=== PATIENT | female | born 1955 | race Caucasian/White ===

== ENCOUNTER 2023-11-10 09:12 | Inpatient (IN) | payer MEDICARE, OTHER, SELFPAY ==
[2023-11-08 17:04] VITALS: BP 123/84
[2023-11-08 17:32] VITALS: BMI 23.5
[2023-11-08 17:41] VITALS: BP 127/83
[2023-11-08 17:48] LABS: % Basophils 0.9 % (0-2); % Eosinophils 2.7 % (0-6); % Immature Granulocytes 0.2 % (0-0.5); % Lymphocytes 17.1 % (20.5-51.1); % Monocytes 7.1 % (1.7-9.3); Absolute Basophils 0.1 10^3/uL (0-0.2); Absolute Eosinophils 0.2 10^3/uL (0-0.7); Absolute Lymphocytes 1.5 10^3/uL (1.2-3.4); Absolute Monocytes 0.6 10^3/uL (0.1-0.6); Absolute Neutrophils 6.1 10^3/uL (1.4-6.5); Hematocrit 37.7 % (37.0-47.0); Hemoglobin 13.1 g/dL (12.0-16.0); Mean Corp Hgb Conc. 34.7 g/dL (33.0-37.0); Mean Corpuscular Hgb 30.3 pg (27.0-31.0); Mean Corpuscular Volume 87.3 fL (81.0-99.0); Nucleated Red Blood Cells % 0 %; Platelet Count 251 10^3/uL (130-400); Red Blood Cell Count 4.32 10^6/uL (4.20-5.40); Red Cell Dist. Width 12.2 % (11.5-14.5); White Blood Cell Count 8.5 10^3/uL (4.8-10.8)
[2023-11-08 18:00] VITALS: BP 124/65
[2023-11-08 18:13] LABS: ALT (SGPT) 19 U/L (0-35); AST (SGOT) 27 U/L (14-36); Albumin 4.1 g/dl (3.5-5.0); Alkaline Phosphatase 80 U/L (38-126); Blood Urea Nitrogen 16 mg/dl (7-17); Calcium 9.5 mg/dl (8.4-10.2); Carbon Dioxide 28 mmol/L (22-30); Chloride 104 mmol/L (98-107); Estimated Creatinine Clearance 73 ml/min; Glucose 101 mg/dl (70-99); Lipase 80 U/L (23-300); Potassium 3.9 mmol/L (3.5-5.1); Sodium 137 mmol/L (135-145); Total Bilirubin 0.4 mg/dl (0.2-1.3); Total Protein 6.5 g/dl (6.3-8.2); eGFR > 60.00
[2023-11-08] MEDS: DILAUDID 0.5 MG IV (18:15)
[2023-11-08] MEDS: NSS 1000 IV ×2 (18:15→22:35)
[2023-11-08 18:38] LABS: Urine Albumin Negative (Neg - Trace); Urine Bilirubin Negative (Negative); Urine Character Clear (Clear); Urine Color Yellow; Urine Glucose Negative (Negative); Urine Ketone Negative (Negative); Urine Leukocyte 1+ (Negative); Urine Nitrite Negative (Negative); Urine Occult Blood Negative (Negative); Urine Urobilinogen Negative (Neg - 1+); Urine pH 6.5 (5.0-9.0)
[2023-11-08 18:48] LABS: Urine Red Blood Cell 0-2 /HPF (0-2); Urine White Cell 0-2 /HPF (0-5)
[2023-11-08 19:00] VITALS: BP 123/70
--- NOTE | 2023-11-08 19:16 | ED.GENMED ---
History of Present Illness
<Jigna Lu PA-C - Last Filed: 11/11/23 09:11>
General
Chief Complaint: Abdominal Symptoms
Source: patient
Exam Limitations: none
Time Seen by Provider: 11/08/23 17:28
Nursing documentation reviewed up to this point in time: agreed with
History of Present Illness
History of Present Illness:
68 y/o F
h/o divertic
says she hd covid end of september
took paxlovid and got diarrhea for a ew days
then took 1 imoidium and tried drinking a smoothie about 5 days ago and got constipated and lower abd pain simlar to divertic
no fever/chills
tried clear liquids for a few days and then went to urgent care 2 days ago and got rx for icpro
bid cipro x 3 doses
went to pcp today and was sent here for eval for ct scan
Past History
<Jigna Lu PA-C - Last Filed: 11/11/23 09:11>
Past History
ED Past Medical History: Other (divertic)
Review of Systems
<KATHERINE Cutler Last Filed: 11/11/23 09:11>
Review of Systems
Allergies reviewed?: Yes
All Other Systems: Not applicable
Phy Exam
<Jigna Lu PA-C - Last Filed: 11/11/23 09:11>
Physical Exam
Physical Exam:
GENERAL: Alert , in no apparent distress
EYE: pupils equal and reactive
NECK: Supple
ENT: o/p clr, mmm.
CARDIAC: Regular rate and rhythm .
LUNGS: Clear breath sounds bilaterally, no acute respiratory distress, no wheezes/rales/rhonchi
ABDOMEN: Soft, moder left lower quad tendenress, no r/g, no cvat, normal bowel sounds
NEUROLOGICAL: Alert and oriented, no focal neuro deficits
SKIN: Warm and dry, skin intact.
MUSCULOSKELETAL: No edema, well perfused.
PSYCH: Normal and appropriate interaction.
Course
<Jigna Lu PA-C - Last Filed: 11/11/23 09:11>
Orders/Labs/Results
Orders:
Orders
11/08/23 17:41
IV Insert/Care/Rem.- Treatment PRN
11/08/23 17:42
Complete Blood Count/With Diff Urgent
Comprehensive Metabolic Panel Urgent
Lipase Urgent
11/08/23 18:09
CT Abd/Pel (IV only)-DH only Urgent
Comment:
Reason For Exam: lower abd pain x 6 days, divertic history
0.9% Sodium Chloride 1000 ml [Nss] 1,000 ml IV BOLUS
HYDROmorphone [Dilaudid] 0.5 mg IV NOW STA
11/08/23 18:31
Urinalysis Reflex To Culture Urgent
Date Specimen was Collected: 11/08/23
Time Specimen was Collected: 18:17
Urine Microscopic Reflex Cult Urgent
Urine Culture Urgent
TONA Source: U
Specimen Description:
Date Specimen was Collected: 11/08/23
Time Specimen was Collected: 18:17
11/08/23 20:19
Ondansetron Injectable [Zofran] 4 mg .ROUTE .STK-MED ONE
Ondansetron Injectable [Zofran] 4 mg IV NOW STA
11/08/23 21:18
Piperacillin/Tazo 3.375 Gram [Zosyn] 3.375 gram in 50 ml IV NOW
11/08/23 21:38
Admit/Transfer Patient As Directed
Co-Sign Provider:
Level of Care: Observation services
Assign to:: Medical/Surgical
Physician / Group: [email or web address]
Diagnosis: Acute uncomplicated diverticultis, constipation, nausea
Reason for Hospitalization: Acute uncomplicated diverticultis, constipation
Expected length of stay greater than two midnights?: Yes
ELOS- Estimated Length of Stay in days: 3
I certify the patient meets the requirements for IP care: Yes
11/08/23 21:40
Code Status As Directed
Resuscitation Status: Full Code
11/08/23 22:00
Flush (0.9% Sodium Chloride) [Flush (Nss)] See Dose Instructions IV PER PROTOCOL
11/08/23 22:15
0.9% Sodium Chloride 1000 ml [Nss] 1,000 ml IV 80 mls/hr
Bisacodyl [Dulcolax] 10 mg RECTAL [id number] PRN
Docusate W/Senna [Senokot-S] 1 tablet PO BIDPRN PRN
HYDROmorphone [Dilaudid] 0.5 mg IV Q4HPRN PRN
Ondansetron Injectable [Zofran] 4 mg IV Q6HPRN PRN
Polyethylene Glycol Powder [Miralax] 17 grams PO DAILYPRN PRN
11/08/23 22:15
Colon Surgery Consult [ColoRectal Surgery Consult] Routine
Consulting Provider: Jack Argueta
Was physician already notified: Yes
Reason for consult: acute diverticultis , constipation
Activity As Directed
Activity Level: With Assistance
Intake/ Output As Directed
Frequency: Per unit guidelines
Vital Signs As Directed
Frequency: Per unit guidelines
DX Deep Vein Thrombosis Video Routine
11/09/23 04:00
Piperacillin/Tazo 3.375 Gram [Zosyn] 3.375 gram in 50 ml IV Q6H
11/09/23 Breakfast
Clear Liquid
At Your Request: Full Participation
11/09/23 06:04
Basic Metabolic Panel IN AM
Complete Blood Count/No Diff IN AM
11/09/23 08:00
Docusate Sodium [Colace] 100 mg PO BID
Heparin 5,000 units SC Q12
Polyethylene Glycol Powder [Miralax] 17 grams PO DAILY
11/09/23 09:19
Acetaminophen [Tylenol] 650 mg PO Q6HPRN PRN
11/09/23 15:19
Enema As Directed
Type: Tap water
Amount: 300cc
Frequency: daily prn
Comment: for constipation
11/10/23 07:28
Complete Blood Count/With Diff IN AM
Abnormal Lab Results
11/08/23 11/08/23 11/09/23
17:42 18:31 06:04
RBC 4.04 L 10^6/uL
(4.20-5.40)
Hgb 11.9 L g/dL
(12.0-16.0)
Hct 34.2 L %
(37.0-47.0)
Absolute Lymphs (auto)
Lymphocytes % 17.1 L %
(20.5-51.1)
Glucose 101 H mg/dl
(70-99)
Leukocyte Esterase Rfl 1+ A
(Negative)
11/10/23
07:28
RBC
Hgb
Hct 36.4 L %
(37.0-47.0)
Absolute Lymphs (auto) 0.9 L 10^3/uL
(1.2-3.4)
Lymphocytes % 18.5 L %
(20.5-51.1)
Glucose
Leukocyte Esterase Rfl
11/10/23 07:28
11/09/23 06:04
Vital Signs
Initial and Last Documented VS:
Initial Vital Signs
Temp Pulse Resp BP Pulse Ox
98.2 F 73 18 123/84 95
11/08/23 17:04 11/08/23 17:04 11/08/23 17:04 11/08/23 17:04 11/08/23 17:04
Last Documented Vital Signs
Temp Pulse Resp BP Pulse Ox
98.1 F 57 16 116/68 95
11/10/23 15:00 11/10/23 15:00 11/10/23 15:00 11/10/23 15:00 11/10/23 15:00
<Tony Issa PA-C - Last Filed: 11/08/23 21:22>
Orders/Labs/Results
Orders:
Orders
11/08/23 17:41
IV Insert/Care/Rem.- Treatment PRN
11/08/23 17:42
Complete Blood Count/With Diff Urgent
Comprehensive Metabolic Panel Urgent
Lipase Urgent
11/08/23 18:09
CT Abd/Pel (IV only)-[facility] only Urgent
Comment:
Reason For Exam: lower abd pain x 6 days, divertic history
0.9% Sodium Chloride 1000 ml [Nss] 1,000 ml IV BOLUS
HYDROmorphone [Dilaudid] 0.5 mg IV NOW STA
11/08/23 18:31
Urinalysis Reflex To Culture Urgent
Date Specimen was Collected: 11/08/23
Time Specimen was Collected: 18:17
Urine Microscopic Reflex Cult Urgent
Urine Culture Urgent
TONA Source: U
Specimen Description:
Date Specimen was Collected: 11/08/23
Time Specimen was Collected: 18:17
11/08/23 20:19
Ondansetron Injectable [Zofran] 4 mg .ROUTE .STK-MED ONE
Ondansetron Injectable [Zofran] 4 mg IV NOW STA
11/08/23 21:18
Piperacillin/Tazo 3.375 Gram [Zosyn] 3.375 gram in 50 ml IV NOW
11/08/23 21:38
Admit/Transfer Patient As Directed
Co-Sign Provider:
Level of Care: Observation services
Assign to:: Medical/Surgical
Physician / Group: analy
Diagnosis: Acute uncomplicated diverticultis, constipation, nausea
Reason for Hospitalization: Acute uncomplicated diverticultis, constipation
Expected length of stay greater than two midnights?: Yes
ELOS- Estimated Length of Stay in days: 3
I certify the patient meets the requirements for IP care: Yes
11/08/23 21:40
Code Status As Directed
Resuscitation Status: Full Code
11/08/23 22:00
Flush (0.9% Sodium Chloride) [Flush (Nss)] See Dose Instructions IV PER PROTOCOL
11/08/23 22:15
0.9% Sodium Chloride 1000 ml [Nss] 1,000 ml IV 80 mls/hr
Bisacodyl [Dulcolax] 10 mg RECTAL [id number] PRN
Docusate W/Senna [Senokot-S] 1 tablet PO BIDPRN PRN
HYDROmorphone [Dilaudid] 0.5 mg IV Q4HPRN PRN
Ondansetron Injectable [Zofran] 4 mg IV Q6HPRN PRN
Polyethylene Glycol Powder [Miralax] 17 grams PO DAILYPRN PRN
11/08/23 22:15
Colon Surgery Consult [ColoRectal Surgery Consult] Routine
Consulting Provider: Jack Argueta
Was physician already notified: Yes
Reason for consult: acute diverticultis , constipation
Activity As Directed
Activity Level: With Assistance
Intake/ Output As Directed
Frequency: Per unit guidelines
Vital Signs As Directed
Frequency: Per unit guidelines
DX Deep Vein Thrombosis Video Routine
11/09/23 04:00
Piperacillin/Tazo 3.375 Gram [Zosyn] 3.375 gram in 50 ml IV Q6H
11/09/23 Breakfast
Clear Liquid
At Your Request: Full Participation
11/09/23 06:04
Basic Metabolic Panel IN AM
Complete Blood Count/No Diff IN AM
11/09/23 08:00
Docusate Sodium [Colace] 100 mg PO BID
Heparin 5,000 units SC Q12
Polyethylene Glycol Powder [Miralax] 17 grams PO DAILY
11/09/23 09:19
Acetaminophen [Tylenol] 650 mg PO Q6HPRN PRN
11/09/23 15:19
Enema As Directed
Type: Tap water
Amount: 300cc
Frequency: daily prn
Comment: for constipation
11/10/23 07:28
Complete Blood Count/With Diff IN AM
Abnormal Lab Results
11/08/23 11/08/23 11/09/23
17:42 18:31 06:04
RBC 4.04 L 10^6/uL
(4.20-5.40)
Hgb 11.9 L g/dL
(12.0-16.0)
Hct 34.2 L %
(37.0-47.0)
Absolute Lymphs (auto)
Lymphocytes % 17.1 L %
(20.5-51.1)
Glucose 101 H mg/dl
(70-99)
Leukocyte Esterase Rfl 1+ A
(Negative)
11/10/23
07:28
RBC
Hgb
Hct 36.4 L %
(37.0-47.0)
Absolute Lymphs (auto) 0.9 L 10^3/uL
(1.2-3.4)
Lymphocytes % 18.5 L %
(20.5-51.1)
Glucose
Leukocyte Esterase Rfl
11/10/23 07:28
11/09/23 06:04
Vital Signs
Initial and Last Documented VS:
Initial Vital Signs
Temp Pulse Resp BP Pulse Ox
98.2 F 73 18 123/84 95
11/08/23 17:04 11/08/23 17:04 11/08/23 17:04 11/08/23 17:04 11/08/23 17:04
Last Documented Vital Signs
Temp Pulse Resp BP Pulse Ox
98.1 F 57 16 116/68 95
11/10/23 15:00 11/10/23 15:00 11/10/23 15:00 11/10/23 15:00 11/10/23 15:00
<Jigna Lu PA-C - Last Filed: 11/11/23 09:11>
MDM/Problems Addressed
Differential Diagnosis Includes:
diverticultis, perforation, abscess, uti
MDM/Problems Addressed:
68 y/oF
h/o divertic
had diarrhea while on paxlovid 2 weeks ago and then started becoming constipated with pain
she thihns a smoothie initiated diverticulitis
tried clear liquids but pain worsening
went to urgent care and has had 3 doses cipro, unclear why not flagyl
now having worse pain
mild to mod LLQ tender
no guarding or rebound
no fever
will eval with labs and ct.
<Tony Issa PA-C - Last Filed: 11/08/23 21:22>
*Critical Care Note
Total Time (30-74mins, 75-104mins- exclusive of procedures): Not Applicable
<Tony Issa PA-C - Last Filed: 11/08/23 21:22>
Patient Management
Discussion with other providers: Hospitalist
Escalation/DeEscalation of care consider admission/obs:
Received patient in signout pending CT of the abdomen and pelvis. Patient with mild uncomplicated diverticulitis. No abscess or bowel perforation noted. Incidental findings of right renal mass likely benign and liver cysts were discussed with the
patient. She was provided with a printout of the CT report. She is still noting continued pain and discomfort and ultimately feels that she needs to stay overnight for IV antibiotics and management. Notified hospitalist team who accepts for
continued evaluation and treatment.
ED Attending Note
<Jigna Lu PA-C - Last Filed: 11/11/23 09:11>
-
Portions of this chart may have been created with voice recognition software.� Occasional wrong word or��sound alike� substitutions may have occurred due to the inherent limitations of voice recognition software.
Discharge Plan
Departure
Patient Disposition: Admit
Date of Disposition: 11/08/23
Time of Disposition: 21:21
Presentation/result/management discussed w/ accepting MD/DO: Hospitalist
Discharge Problem:
Diverticulitis
Interventions
Interventions:
*Risk Screen - Suicide Last Done: 11/08/23 17:33
*General Assessment Last Done: 11/08/23 17:33
*Neglect/Abuse Screening Last Done: 11/08/23 17:33
ED- Fall Risk Assessment Last Done: 11/08/23 19:17
*ED COVID-19 Vaccine History Last Done: 11/08/23 17:33
*Nursing Disposition Last Done: 11/08/23 22:37
RB-Zdcvad-Gczyuoxpsq Assessment Last Done: 11/08/23 19:16
[2023-11-08] MEDS: ZOFRAN 4 MG IV (20:20)
[2023-11-08] MEDS: ZOSYN 50 IV (21:25)
--- NOTE | 2023-11-08 21:32 | HPS.HSE ---
Family Physician
-
Family Physician: Priya De León MD
Chief Complaint
-
colicky abdominal pain
History of Present Illness
68F with recent OP Dxs of acute uncomplicated diverticulitis. Currently on D2/ dose 3 Cipro after being evalauted at ER. F/u with PCP today and sent to ER for furthr evalaution for worsening of abdominal pain
- constipated for last 4 days
- Not taking laxatives
- worsening colicky abdominal pain
- worsening nausea
- Received one dose of IV Zofran
- Zosyn was started at ER
- HX 1st episode of uncomplicated diverticulitis 7 yrs ago
Medical History
Past Medical History
Past Medical History: Reports None
Past Surgical History: Reports None
Social History
Tobacco: Non-smoker
Alcohol: None
Drug: None
Family History
Family History: Not pertinent
Allergies / Home Medications
Allergies reflects when Allergies were last updated in [employer].
Home Medications with original date entered in [employer]
Allergy/Medication List:
Allergies
Allergy/AdvReac Type Severity Reaction Status Date / Time
No Known Allergies Allergy Unverified 11/08/23 17:09
Home Medications
ascorbic acid (vitamin C) 500 mg tablet (Vitamin C) 500 mg PO DAILY 11/08/23
calcium carbonate 600 mg PO DAILY 11/08/23
ciprofloxacin HCl 500 mg tablet 500 mg PO BID 11/08/23
therapeutic multivitamin 1 tab PO DAILY 11/08/23
vitamin B complex 1 cap PO DAILY 11/08/23
Review of Systems
-
Constitutional: Reports No Symptoms
EENT: Reports No Symptoms
Respiratory: Reports No Symptoms
Cardiac: Reports No Symptoms
Abdomen/GI: Reports See HPI, Abdominal Pain, Nausea and Constipated; Denies Vomiting
: Reports No Symptoms
Musculoskeletal: Reports No Symptoms
Skin: Reports No Symptoms
Neurological: Reports No Symptoms
Endocrine: Reports No Symptoms
Hematologic/Lymphatic: Reports No Symptoms
Psych: Reports No Symptoms
Physical Exam
Vital Signs
Vital Signs
Temp Pulse Resp BP Pulse Ox
98.2 F 69 12 123/70 93
11/08/23 17:04 11/08/23 19:15 11/08/23 19:15 11/08/23 19:00 11/08/23 19:15
Physical Exam
General: Well Developed, Well Nourished and No Apparent Distress
HEENT: NormoCephalic, Moist mucous membranes and Atraumatic
Respiratory: Clear
Cardiac: S1/S2 and Regular Rhythm; No Murmur or Rub
GI: Soft, Non Tender, Non Distended and Normal Bowel Sounds; No Organomegaly
Rectal: Deferred by Provider
Musculoskeletal: No Clubbing, No Cyanosis and No Edema
Skin: No Rash
Neuro: Nonfocal/grossly intact
Psych: Calm and Intact Judgment/Insight
Laboratory Results
-
11/08/23 17:42
11/08/23 17:42
Laboratory Results
Total Bilirubin 0.4 mg/dl (0.2-1.3) 11/08/23 17:42
AST 27 U/L (14-36) 11/08/23 17:42
ALT 19 U/L (0-35) 11/08/23 17:42
Alkaline Phosphatase 80 U/L (38-126) 11/08/23 17:42
Lipase 80 U/L (23-300) 11/08/23 17:42
Data Reviewed
-
CT Scan: Report Reviewed by me
Lab Data: Labs Reviewed by me
Impression/Plan
-
Reviewed VS: afebrile , unremarkable
Data
WCC 8.5
Unremarkable CMP
NEG UA
No Prior hospitalist or admission:
CT Abd/Pel with IV only
- Mild acute diverticulitis of the mid sigmoid colon.
- No evidence of perforation or abscess formation.
- Moderate fecal material throughout the colon.
- Hepatic cysts cysts. Too small to characterize hypodense hepatic lesions likely benign cysts.
- Benign right renal intramural lipoma. (Too small to catheterize hypodense right renal lesions likely benign cysts)
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
ASSESSMENT & PLAN
Acute uncomplicated diverticulitis : - HX 1st episode of uncomplicated diverticulitis 7 yrs ago
Fecal burden due to constipation for last 4 days: Not on laxatives at home
- No evidence of perforation or abscess formation.
- Moderate fecal material throughout the colon per CT
- Colace fecal softener BID and Miralax PRN. Would avoid stimulant like senna if we can !
- IV Zofran PRN
- IVF
- cont Zosyn and transition back to PO soon
- CRS consult
DVT Px: SCD
Code: Full code
Obs MS
[2023-11-08 22:31] VITALS: BP 127/75
[2023-11-08 22:32] VITALS: BP 127/75
--- NOTE | 2023-11-09 03:42 | PTCARENOTE ---
Report given to Hannah PAYTON
[2023-11-09] MEDS: ZOSYN 50 IV ×4 (04:16→21:16)
[2023-11-09 06:19] LABS: Hematocrit 34.2 % (37.0-47.0); Hemoglobin 11.9 g/dL (12.0-16.0); Mean Corp Hgb Conc. 34.8 g/dL (33.0-37.0); Mean Corpuscular Hgb 29.5 pg (27.0-31.0); Mean Corpuscular Volume 84.7 fL (81.0-99.0); Mean Platelet Volume 8.8 fL (7.4-10.4); Platelet Count 228 10^3/uL (130-400); Red Blood Cell Count 4.04 10^6/uL (4.20-5.40); Red Cell Dist. Width 12.2 % (11.5-14.5); White Blood Cell Count 6.4 10^3/uL (4.8-10.8)
[2023-11-09 06:46] LABS: Blood Urea Nitrogen 10 mg/dl (7-17); Calcium 8.7 mg/dl (8.4-10.2); Carbon Dioxide 27 mmol/L (22-30); Chloride 107 mmol/L (98-107); Estimated Creatinine Clearance 73 ml/min; Glucose 86 mg/dl (70-99); Potassium 3.8 mmol/L (3.5-5.1); Sodium 139 mmol/L (135-145); eGFR > 60.00
[2023-11-09 07:00] VITALS: BP 112/52
[2023-11-09 07:03] VITALS: BP 112/52
[2023-11-09] MEDS: MIRALAX 17 GRAMS PO (09:01)
--- NOTE | 2023-11-09 09:08 | CON.CRS ---
Consultation
-
Date/Time Consultation Requested: 11/08/2023, 22:15
Date/Time Consultation Performed: 11/09/2023, 9:45
Requesting Provider: Arya Deleon MD
Performing Provider: Dillon Guerrero MD
Reason for Consultation: diverticulitis
Medical History
-
Chief Complaint: abdominal pain
History of Present Illness:
68-year-old female presents to [place] emergency department yesterday complaining of abdominal pain. The patient had COVID at the end of September and took Paxlovid and got diarrhea for several days. Because of this she took an Imodium 5 days ago
and was constipated ever since. She developed lower abdominal pain that was similar to her previous diverticulitis attack about 7 years ago. She went to urgent care 2 days ago and was prescribed Cipro. She went to her primary care doctor
yesterday for this issue who sent her to the ER for imaging.
In the ER her vital signs are normal. Her white blood cell count is 6.4. CT of the abdomen and pelvis showed mild acute diverticulitis of the mid sigmoid colon. No evidence of perforation or abscess formation. Moderate fecal material throughout
the colon. She was started on IV Zosyn and on a clear liquid diet. She had a small hard BM this morning. We have been consulted for further surgical evaluation.
Past Medical History
Past Medical History: None
Past Surgical History: None
Social History
Tobacco: Non-Smoker
Alcohol: None
Drug: None
Family History
Family History: Reviewed & Not Pertinent
Allergies / Home Medications
Allergy/AdvReac Type Severity Reaction Status Date / Time
No Known Allergies Allergy Unverified 11/08/23 17:09
�Medication �Instructions �Recorded �Confirmed �Type
ascorbic acid (vitamin C) 500 mg 500 mg PO DAILY 11/08/23 11/08/23 History
tablet (Vitamin C)
calcium carbonate 600 mg PO DAILY 11/08/23 11/08/23 History
ciprofloxacin HCl 500 mg tablet 500 mg PO BID 11/08/23 11/08/23 History
therapeutic multivitamin 1 tab PO DAILY 11/08/23 11/08/23 History
vitamin B complex 1 cap PO DAILY 11/08/23 11/08/23 History
Review of Systems
-
History Source: Patient
Abdomen/GI: Abdominal Pain
A 10 point review of systems was completed, and was negative except as per HPI.
Physical Exam
Vital Signs
Temp 98.1 F 11/09/23 07:00
Pulse 56 11/09/23 07:00
Resp Rate 16 11/09/23 07:00
Blood pressure 112/52 11/09/23 07:00
SaO2 96 11/09/23 07:00
11/08/23 11/09/23 11/10/23
06:59 06:59 06:59
Actual Weight 65.9 kg
Body Mass Index (BMI) 23.5
Lab Results / Allergies
11/09/23 06:04
11/09/23 06:04
WBC 6.4 10^3/uL (4.8-10.8) 11/09/23 06:04
Hgb 11.9 g/dL (12.0-16.0) L 11/09/23 06:04
Hct 34.2 % (37.0-47.0) L 11/09/23 06:04
Plt Count 228 10^3/uL (130-400) 11/09/23 06:04
Abs Immat Gran (auto) 0.0 10^3/uL (0-0.05) 11/08/23 17:42
Neutrophils % 72.0 % (42.2-75.2) 11/08/23 17:42
Allergy/AdvReac Type Severity Reaction Status Date / Time
No Known Allergies Allergy Unverified 11/08/23 17:09
Physical Exam
General: Well Developed, Well Nourished and No Apparent Distress
GI: Soft, Non Tender and Non Distended
Skin: Warm and Dry
Neuro: AO x 3
Data Reviewed
-
CT Scan: Image Personally Visualized and interpreted and Report Reviewed by me
Labs: Labs Reviewed by me, Discussed with Physician and Discussed with Patient
Old Records: Reviewed
Assessment / Plan
-
Assessment: 68-year-old female with no past medical history presents to the emergency department complaining of lower abdominal pain and found to have mild acute diverticulitis of the mid sigmoid colon on CT. Sigmoid diverticulitis vs stercoral
colitis.
Plan: No acute surgical intervention needed at this time. It is difficult to tell on CAT scan if this is truly sigmoid diverticulitis versus stercoral colitis. Either diagnosis requires IV antibiotics. Will d/c miralax and colace/senna. Enema PRN
if constipated. Trend labs/vitals.
[2023-11-09] MEDS: ZOFRAN 4 MG IV (10:04)
[2023-11-09] MEDS: TYLENOL 650 MG PO (10:04)
--- NOTE | 2023-11-09 14:10 | W.PN.HOSP.TC ---
Today's Communication/Plan
-
Monitor vital signs and see plan
Continued antibiotics
Continue clears
Assessment / Plan
Assessment / Plan
General: Well Developed, Well Nourished and No Apparent Distress
HEENT: NormoCephalic, Moist mucous membranes and Atraumatic
Respiratory: Clear
Cardiac: S1/S2 and Regular Rhythm; No Murmur or Rub
GI: Soft, Non Tender, Non Distended and Normal Bowel Sounds
Musculoskeletal: No Edema
Neuro: Nonfocal/grossly intact
Psych: Calm and Intact Judgment/Insight
Acute uncomplicated diverticulitis : - HX 1st episode of uncomplicated diverticulitis 7 yrs ago
Could also have some stercoral colitis
Fecal burden due to constipation for last 4 days: Not on laxatives at home
- No evidence of perforation or abscess formation.
- Moderate fecal material throughout the colon per CT
Now having bowel movement, spoke with colorectal and would stop laxative at this time. If patient is constipated then can do enema
- IV Zofran PRN
- IVF
clears
- cont Zosyn and transition back to PO soon
- CRS consult
Mild anemia; likely 2/2 dilution
monitor
DVT Px: SCD
Code: Full code
Anticipated Discharge: Within 24 hours
Subjective/Interval History
-
Date of Service: November 09, 2023
Objective Data
-
Labs:
Laboratory Results
11/09/23
06:04
WBC 6.4
Hgb 11.9 L
Hct 34.2 L
Plt Count 228
Sodium 139
Potassium 3.8
Chloride 107
Carbon Dioxide 27
BUN 10
Creatinine 0.7
Glucose 86
Calcium 8.7
Vital Signs:
Vital Signs
Temp Pulse Resp BP Pulse Ox
98.1 F 56 16 112/52 96
11/09/23 07:00 11/09/23 07:00 11/09/23 07:00 11/09/23 07:00 11/09/23 07:00
I&O
11/08/23 11/09/23 11/10/23
06:59 06:59 06:59
Intake Total 50 / 50
Balance 50 / 50
[2023-11-09] MEDS: NSS 1000 IV (14:38)
[2023-11-09 14:44] VITALS: BP 112/60
[2023-11-09 15:00] VITALS: BP 112/60
[2023-11-09 23:00] VITALS: BP 104/62
[2023-11-10] MEDS: NSS 1000 IV (00:36)
[2023-11-10] MEDS: TYLENOL 650 MG PO (00:39)
[2023-11-10] MEDS: ZOSYN 50 IV ×2 (04:01→09:08)
[2023-11-10 07:30] VITALS: BP 119/70
[2023-11-10 08:11] LABS: % Basophils 1.2 % (0-2); % Eosinophils 3.4 % (0-6); % Immature Granulocytes 0.4 % (0-0.5); % Lymphocytes 18.5 % (20.5-51.1); % Monocytes 7.2 % (1.7-9.3); % Neutrophils 69.3 % (42.2-75.2); Absolute Basophils 0.1 10^3/uL (0-0.2); Absolute Eosinophils 0.2 10^3/uL (0-0.7); Absolute Lymphocytes 0.9 10^3/uL (1.2-3.4); Absolute Monocytes 0.4 10^3/uL (0.1-0.6); Absolute Neutrophils 3.5 10^3/uL (1.4-6.5); Hematocrit 36.4 % (37.0-47.0); Hemoglobin 12.8 g/dL (12.0-16.0); Mean Corp Hgb Conc. 35.2 g/dL (33.0-37.0); Mean Corpuscular Hgb 30.5 pg (27.0-31.0); Mean Corpuscular Volume 86.7 fL (81.0-99.0); Mean Platelet Volume 9.1 fL (7.4-10.4); Nucleated Red Blood Cells % 0 %; Platelet Count 243 10^3/uL (130-400); Red Cell Dist. Width 12.2 % (11.5-14.5)
--- NOTE | 2023-11-10 09:16 | W.PN.CRS1 ---
Today's Communication / Plan
-
Low residue
Okay for discharge from our perspective, no surgery
Assessment/Plan
-
Assessment: 68-year-old female with no past medical history presents to the emergency department complaining of lower abdominal pain and found to have mild acute diverticulitis of the mid sigmoid colon on CT. Sigmoid diverticulitis vs stercoral
colitis.
Plan:
-No surgery indicated at this time
� Advance diet to low residue
� Labs and vitals normal
� Okay to discharge from our perspective if tolerates low residue diet. Finish course of antibiotics.
� Okay for MiraLAX as needed.
Subjective Data
Subjective Data
Date of Service: November 10, 2023
Patient states that she feels 'wiped out'. She is passing bowel movements. She has no abdominal pain. She was nauseous earlier but this resolved.
Objective Data
-
Vital Signs
Temp Pulse Resp BP Pulse Ox
97.5 F 55 16 119/70 95
11/10/23 07:30 11/10/23 07:30 11/10/23 07:30 11/10/23 07:30 11/10/23 07:30
Intake & Output
11/09/23 11/10/23 11/11/23
06:59 06:59 06:59
Intake Total 290 / 290
Balance 290 / 290
Intake:
IV fluids (Total) 240 / 240
IV piggybacks 50 / 50
Other:
How many times incontinent 2
MODERATE amount urine
Lab Results
11/10/23 07:28
11/09/23 06:04
Physical Exam
-
General: No Acute Distress and AOx3
Abdomen: Soft, Non Distended and Non Tender
Skin: Warm and Dry
--- NOTE | 2023-11-10 10:43 | W.PN.HOSP.TC ---
Addendum entered and electronically signed by Pelon Zapata MD 11/10/23 14:46:
Patient tolerated regular diet. Having Bm's. dc home today on abx per colorectal recs
Time of discharge 38 minutes
Original Note:
Today's Communication/Plan
-
monitor vitals
see plan
trial of low res
laxatives
cw abx
if feeling better later today then discharge
Assessment / Plan
Assessment / Plan
General: Well Developed, Well Nourished and No Apparent Distress
HEENT: NormoCephalic, Moist mucous membranes and Atraumatic
Respiratory: Clear
Cardiac: S1/S2 and Regular Rhythm; No Murmur or Rub
GI: Soft, Non Tender, Non Distended and Normal Bowel Sounds
Musculoskeletal: No Edema
Neuro: Nonfocal/grossly intact
Psych: Calm and Intact Judgment/Insight
Acute uncomplicated diverticulitis vs stercoral colitis : - HX 1st episode of uncomplicated diverticulitis 7 yrs ago
Could also have some stercoral colitis
Fecal burden due to constipation for last 4 days: Not on laxatives at home. now on miralax
- No evidence of perforation or abscess formation.
- Moderate fecal material throughout the colon per CT
Now having bowel movement, spoke with colorectal and would stop laxative at this time. If patient is constipated then can do enema
- IV Zofran PRN
- IVF
clears
- cont Zosyn and transition back to PO soon
- CRS following
Mild anemia; likely 2/2 dilution
monitor; resolved
DVT Px: SCD
Code: Full code
Anticipated Discharge: Within 24 hours
Subjective/Interval History
-
Date of Service: November 10, 2023
feels nauseous
Objective Data
-
Labs:
Laboratory Results
11/10/23
07:28
WBC 5.0
Hgb 12.8
Hct 36.4 L
Plt Count 243
Vital Signs:
Vital Signs
Temp Pulse Resp BP Pulse Ox
97.5 F 55 16 119/70 95
11/10/23 07:30 11/10/23 07:30 11/10/23 07:30 11/10/23 07:30 11/10/23 07:30
I&O
11/09/23 11/10/23 11/11/23
06:59 06:59 06:59
Intake Total 290 / 290
Balance 290 / 290
[2023-11-10] MEDS: MIRALAX 17 GRAMS PO (10:45)
--- NOTE | 2023-11-10 12:47 | CM ---
counseling services manager reviewed patient's chart and met with patient, patient has switched to inpatient and IMM provided at 12:00 today, patient lives with spouse in a 2 story home with 15 steps to enter, patient is independent with adl's and ambulation,
patient drives.
Pharmacy [facility]
PCP: Priya De León
Plan; Home no needs.
--- NOTE | 2023-11-10 13:25 | PTCARENOTE ---
Pt had a hard, formed small BM after receiving Miralax.
--- NOTE | 2023-11-10 14:45 | W.DCSUMMARY ---
Discharge Summary
Discharge Data
Date of Admission: 11/10/23
Date of Discharge: 11/10/23
-
Pending Results: No
Hospital Course
68-year-old female with past medical history of diverticulitis came to the hospital with abdominal pain, nausea. CT scan was consistent with possible acute uncomplicated diverticulitis however patient still had moderate fecal material on the CT
scan. Patient was seen by colorectal surgery who though her symptoms could be also secondary to stercoral colitis. Given these findings patient was treated with antibiotics which was changed to oral prior to discharge. Over time patient did had
bowel movement prior to discharge. She was also able to tolerate regular diet prior to discharge. Once her symptoms continue to improve and she was able to tolerate diet without difficulty, she was then discharged home with instructions to
follow-up with PCP and colorectal surgery outpatient.
Discharge Plan
-
Patient Disposition: Home (Routine Discharge)
Discharge Diagnosis/Procedures: Acute uncomplicated diverticulitis vs sterocoral colitis
Condition: Fair
Diet: As tolerated
Activity: No restrictions
Driving Restrictions: As prior to admission
Bathing Restrictions: None
Referrals:
Dillon Guerrero MD [Active] - in three to four weeks
Priya De León MD [Family Provider] - in less than 1 week
Prescriptions:
New
acetaminophen 325 mg Tablet
650 mg PO Q6HPRN PRN (Reason: mild pain/ fever>100.5F) Qty: 0 0RF
polyethylene glycol 3350 [HealthyLax] 17 gram Powder In Packet
17 g PO DAILYPRN PRN (Reason: constipation) Qty: 0 0RF
docusate sodium [Colace] 100 mg capsule
100 mg PO BID PRN (Reason: constipation) Qty: 60 0RF
ciprofloxacin HCl 500 mg tablet
500 mg PO BID Qty: 14 0RF
metronidazole 500 mg tablet
500 mg PO Q8H 7 Days Qty: 21 0RF
Continued
therapeutic multivitamin Tablet
1 tab PO DAILY
calcium carbonate 600 mg calcium (1,500 mg) Tablet
600 mg PO DAILY
ascorbic acid (vitamin C) [Vitamin C] 500 mg Tablet
500 mg PO DAILY
vitamin B complex Capsule
1 cap PO DAILY
Discontinued
ciprofloxacin HCl 500 mg tablet
500 mg PO BID
Discharge Orders:
Discharge Patient (As Directed); Ordered 11/10/23
Ordered By: Pelon Zapata
Discharge Date and Time
Discharge Date/Time: 11/10/23 15:25
Print Language: [place]
[2023-11-10 15:00] VITALS: BP 116/68
== END 2023-11-10 15:25 | disposition home or self-care (01) | DRG 392 ==
LOC: 4 WEST ACU 09:12
PROVIDERS: Physician Assistant; ADMITTING PHYSICIAN Internal Medicine; ATTENDING PHYSICIAN Internal Medicine; EMERGENCY PHYSICIAN Emergency Medicine; FAMILY PHYSICIAN Family Medicine; OTHER PHYSICIAN Surgery
DX: K57.32 Diverticulitis of large intestine without perforation or abscess without bleeding (principal); K76.89 Other specified diseases of liver; K52.89 Other specified noninfective gastroenteritis and colitis; K59.00 Constipation, unspecified; D17.71 Benign lipomatous neoplasm of kidney; Z87.19 Personal history of other diseases of the digestive system; Z79.899 Other long term (current) drug therapy
CPT/HCPCS: 74177; 80048; 80053; 81003; 81015; 83690; 85025; 85027; 87086; Q9967

== ENCOUNTER → 2024-01-04 10:57 | Outpatient (REF) | payer MEDICARE, OTHER, SELFPAY | LOC: HWRAD 10:57 | PROVIDERS: ATTENDING PHYSICIAN Family Medicine; REFERRING PHYSICIAN Nurse Practitioner Family | DX: Z12.31 Encounter for screening mammogram for malignant neoplasm of breast (principal); Z78.0 Asymptomatic menopausal state | CPT/HCPCS: 77063; 77067; 77080 ==

== ENCOUNTER → 2024-12-17 14:19 | Outpatient (REF) | payer MEDICARE, OTHER, SELFPAY | LOC: HWRAD 14:19 | PROVIDERS: ATTENDING PHYSICIAN Family Medicine | DX: E78.2 Mixed hyperlipidemia (principal) | CPT/HCPCS: 75571 ==

== ENCOUNTER → 2025-03-29 11:06 | Outpatient (REF) | payer MEDICARE, OTHER, SELFPAY | LOC: HWRCS 11:06 | PROVIDERS: ATTENDING PHYSICIAN Internal Medicine Cardiovascular Disease; FAMILY PHYSICIAN Family Medicine | DX: R06.09 Other forms of dyspnea (principal); R07.2 Precordial pain; R93.1 Abnormal findings on diagnostic imaging of heart and coronary circulation | CPT/HCPCS: 93306 ==

== ENCOUNTER → 2025-04-01 12:06 | Outpatient (REF) | payer MEDICARE, OTHER, SELFPAY | LOC: HWRCS 12:06 | PROVIDERS: ATTENDING PHYSICIAN Internal Medicine Cardiovascular Disease; FAMILY PHYSICIAN Family Medicine | DX: R06.09 Other forms of dyspnea (principal); R07.2 Precordial pain; R93.1 Abnormal findings on diagnostic imaging of heart and coronary circulation | CPT/HCPCS: 78452; 93017; A9500 ==